=== PATIENT | female | born 1970 | race Caucasian/White ===

== ENCOUNTER 2024-01-03 10:33 | Emergency (ER) | payer OTHER, SELFPAY ==
[2024-01-03 11:22] VITALS: BP 138/85; PULSE 80; RESP 15; TEMP 36.5; O2SAT 98
[2024-01-03 12:25] VITALS: BP 166/69; PULSE 71; RESP 15; O2SAT 99
--- NOTE | 2024-01-03 12:26 | ED.DENTAL ---
HPI - Dental/Oral General Chief complaint: Dental/Oral Stated complaint: infection in gums Time Seen by Provider: 01/03/24 12:02 History of Present Illness HPI Narrative: This is a 53-year-old female presenting with right-sided periapical pain in the upper jaw. She states she thinks she is having a dental infection. She does not have a regular dentist that she can follow-up with. She has had previous dental infections and teeth removal. Denies any systemic features such as fever, chills. Was otherwise in her normal state of health. Denies any facial swelling, drooling, sore throat, headache, vision changes, eye problems. Allergies to sulfa. Related Data Allergies Allergy/AdvReac Type Severity Reaction Status Date / Time Sulfa (Sulfonamide AdvReac Swelling Verified 01/03/24 11:21 Antibiotics) Review of Systems Review of Systems: As reviewed above in HPI Exam Narrative: GENERAL: [Well-appearing, well-nourished, and in no acute distress.] HEAD: [Normocephalic, atraumatic.] EYES: [PERRLA and EOMI.] ENT: Small periapical abscess noted in the right sided 1st incisor, mild fluctuance and tenderness to palpation. No adjacent gingivitis, no facial swelling, no maxillary sinus tenderness. Full range of motion of the jaw. No lymphadenopathy. No posterior pharyngeal swelling, erythema or exudates. NECK: Supple. CHEST: [Clear to auscultation. No respiratory distress.] HEART: [Regular rate and rhythm]. No murmur heard. [Normal peripheral pulses.] ABDOMEN: [Soft, nondistended], [nontender], [No rigidity or guarding] EXTREMITIES: Normal range of motion. [No edema.] SKIN: Warm, dry, no rash. NEURO: [No focal deficits]. Alert and oriented [x3.] PSYCH: [Normal mood and affect.] Course Vital Signs Vital signs: Vital Signs Temperature 36.5 C 01/03/24 11:22 Pulse Rate 80 01/03/24 11:22 Respiratory Rate 15 01/03/24 11:22 Blood Pressure 138/85 01/03/24 11:22 Pulse Oximetry 98 01/03/24 11:22 Oxygen Delivery Room Air 01/03/24 11:22 Temperature 36.5 C 08/11/24 11:22 Pulse Rate 71 01/03/24 12:25 Respiratory Rate 15 01/03/24 12:25 Blood Pressure 166/69 H 01/03/24 12:25 Pulse Oximetry 99 01/03/24 12:25 Oxygen Delivery Room Air 01/03/24 11:22 MDM - Dental/Oral MDM Narrative Medical decision making narrative: This is a 53-year-old female presenting with dental pain. She has a right-sided periapical abscess and signs of dental infection near her 1st size on the right side. She has no systemic features of infection otherwise appears in her normal state of health. She has normal reassuring vital signs and no red flag symptoms of significant dental infection or deep space infection. We will drain the periapical abscess here and provided her analgesia with [place] p.o. Augmentin to be taken home for next several days. Patient was agreeable to this plan of care and be discharged upon completion of the procedure. Differential Diagnosis Differential diagnosis: Likely gingival abscess, dental caries, toothache, dental abscess, fracture of tooth and aphthous ulcer Medical Records Attestation: I reviewed the patient's medical records. Discharge Plan Discharge Clinical Impression: Toothache, Dental caries, Dental abscess Patient Disposition: Home, Self-Care Condition: Stable Instructions: Antibiotic Form, Dental Abscess (ED), Toothache (ED) Additional Instructions: We did drain some of the dental abscess that you had on the right side. Please continue taking the antibiotics as prescribed. Please return if you have any developing a fever, chills, intractable pain or difficulty swallowing. He can be safely seen on outpatient dentist appointment. Prescriptions: New ibuprofen 800 mg tablet 800 mg PO TID PRN (Reason: pain) Qty: 30 0RF acetaminophen [Tylenol Extra Strength] 500 mg tablet 1,000 mg PO Q6H PRN (Reason: pain) Qty: 30 0RF amoxicillin-pot clavulanate
[2024-01-03] MEDS: AMOXICILLIN/CLAVULANATE K 875-125 MG TAB 1 TABLET PO (12:33)
[2024-01-03] MEDS: HYDROcodone/acetaminophen (*CRX) 5-325 MG TABLET 1 TAB PO (12:33)
[2024-01-03 13:25] VITALS: BP 131/62; PULSE 67; RESP 16; TEMP 36.5; O2SAT 99
== END 2024-01-03 13:28 | disposition home or self-care (01) ==
PROVIDERS: Emergency Provider Student in an Organized Health Care Education/Training Program
DX: K04.7 Periapical abscess without sinus (principal); K02.9 Dental caries, unspecified
CPT/HCPCS: 99283; A9270